=== PATIENT | male | born 1935 | race Caucasian/White ===

== ENCOUNTER 2016-08-20 17:35 | Observation (INO) ==
--- NOTE | 2016-08-20 19:48 | Emergency Department Note ---
Disposition Clinical Impression: Near syncope, Weakness of both lower limbs, Lightheadedness Disposition: Admitted As Inpatient Condition: Fair Forms: ED Satisfaction Letter Time of Disposition: 21:34 Dizziness HPI - General Chief Complaint: ED Dizziness Stated Complaint: Dizziness x5 days Time Seen by Provider: 08/20/16 18:38 Source: patient, family Limitations: no limitations Nursing Notes Reviewed: Yes Vital Signs Reviewed: Yes - History of Present Illness HPI Narrative: Patient is an 80-year-old male who presents to [facility] ED with a chief complaint of dizziness and feeling off balance. He states his symptoms have been ongoing for about the last 5 days. Patient states he felt this come on when he woke up on Wednesday morning. States he has had to use his cane to walk all week when he normally does not need it. states he has been very off balance though he has not fallen. States he normally does these exercises where he is laying on the floor and lifts 2 pound weights with his arms. States he suddenly became pale and felt like he was about to pass out while laying down. Denies any nausea, vomiting, fever or chills. states both him and her seemed to be coming down with a cold last week but then that has resolved. Patient has had a prior stroke in 2012 and was left with some memory problems and right eye peripheral vision blindness. Also has had a prior heart attack and stent placement back in 2007. Patient is on aspirin and Plavix. Pt Subjective Complaint: dizziness, lightheadedness, near syncope, difficulty walking, weakness Onset (ago): day(s) Timing: awoke with symptoms Description: lightheadedness, off-balance, difficulty walking, near-syncope History of similar episodes: No History of trauma: No Severity: moderate Improves with: nothing Worsens with: nothing Associated symptoms: Reports: weakness. Denies: chest pain, fever, chills, shortness of breath, vision changes, nausea, vomiting - Related Data Home Medications Medication Instructions Recorded Confirmed Aspirin 81 mg PO DAILY 10/21/15 04/17/16 Clopidogrel [Plavix] 75 mg PO DAILY 10/21/15 04/17/16 Nitroglycerin [Nitrostat] 0.4 mg SL PRN PRN 10/21/15 04/17/16 Simvastatin [Zocor] 40 mg PO HS 10/21/15 04/17/16 Isradipine 5 mg PO BID 08/20/16 08/20/16 Metoprolol XL (24 HR) Succ [Toprol 50 mg PO DAILY 08/20/16 08/20/16 XL] Previous Rx's Medication Instructions Recorded Lisinopril [Zestril] 10 mg PO BID #90 tablet 05/21/16 Allergies Allergy/AdvReac Type Severity Reaction Status Date / Time baclofen Allergy Rash Verified 08/20/16 18:04 metronidazole [From Flagyl] Allergy Rash Verified 08/20/16 18:04 All systems ED: reviewed and negative except as stated. Past Medical History - Past Medical History Attestation: Yes The following information was validated with the patient. Source: patient Medical history: Reports: cancer, CVA, myocardial infarction, other Surgical history: Reports: no surgical history Psychiatric history: Reports: no psych history - Social History Smoking Status: Never smoker Smokeless Tobacco Status: No Alcohol use: Reports: occasionally Drug use: Reports: none Physical Exam - General Limitations: no limitations General appearance: alert, in no apparent distress - Head Head exam: atraumatic, normocephalic, normal inspection - Eye Eye exam: Present: normal appearance, PERRL, EOMI - ENT ENT exam: normal exam, normal oropharynx, mucous membranes moist - Neck Neck exam: Present: normal inspection, full ROM, trachea midline - Chest Chest inspection: Present: normal inspection, symmetric chest wall rise - Respiratory Respiratory exam: Present: normal lung sounds bilaterally - Cardiovascular Cardiovascular exam: Present: regular rate, normal rhythm, normal heart sounds - Abdominal Exam Abdominal exam: Present: soft, Non-Tender. Absent: tenderness, distention, guarding, rebound, rigidity - Extremities Exam Extremities exam: Present: normal inspection, full ROM. Absent: tenderness, pedal edema - Back Exam Back exam: Present: normal inspection, full ROM. Absent: tenderness - Neurological Exam Neurological exam: Present: alert, oriented X3, CN II-XII intact. Absent: motor sensory deficit - Expanded Neurological Exam Speech: Present: fluid speech Cranial nerves: EOM function (II, III, IV, ): Normal, facial sensation (V): Normal, facial palsy (VII): Normal, spinal accessory function (XI): Normal, tongue deviation (XII): Normal Cerebellar function: finger to nose: Normal, heel to santoyo: Normal Motor strength - LUE: 5/5 Motor strength - RUE: 5/5 Motor strength - LLE: 5/5 Motor strength - RLE: 4/5 Sensory exam upper extremity: light touch: Normal Sensory exam lower extremity: light touch: Normal Coma Scale Eye Opening: Spontaneous Coma Scale Motor Response: Obeys Commands Coma Scale Verbal Response: Oriented Coma Scale Total: 15 - Psychiatric Psychiatric exam: Present: normal affect, normal mood - Skin Skin exam: Present: warm, dry, intact, normal color Course Course Narrative: Patient seen and examined. Dizziness and difficulty walking for the last 5 days. Concern for possible cerebellar stroke. Patient is out of the window for TPA. His NIH score is 0 at this time. We would like to get an MRI of the head. However, we were called by MRI stating due to patient's shrapnel in his pelvis, they will need to do a MRI over at the [facility] tomorrow during the day. We will do a CT scan of the head for now. Cardiopulmonary workup ordered. - Reevaluation(s) Reevaluation #1: Patient's lab work is unremarkable. CT head does not show any signs of an acute bleed. We will admit for CVA workup. Also workup for exertional syncope. I spoke with hospitalist Dr. Le who has accepted patient for admission. Time: 21:32 Vital Signs Temperature 98.1 F 08/20/16 18:00 Pulse Rate 70 08/20/16 18:00 Respiratory Rate 16 08/20/16 18:00 Blood Pressure 155/92 08/20/16 18:00 O2 Sat by Pulse Oximetry 93 L 08/20/16 18:00 Temperature 98.1 F 08/20/16 18:00 Pulse Rate 59 08/20/16 20:29 Respiratory Rate 16 08/20/16 18:00 Blood Pressure 152/98 08/20/16 20:29 O2 Sat by Pulse Oximetry 93 L 08/20/16 18:00 Oxygen Delivery Oxygen Delivery Room Air Dizziness - Medical Records Medical records reviewed: Yes I reviewed the patient's medical records. - Lab Data Lab results reviewed: Yes I reviewed the patient's lab results. Result diagrams: 08/20/16 20:07 08/20/16 20:07 Lab Results 08/20/16 08/20/16 08/20/16 Range/Units 20:07 20:07 20:07 WBC (4.3-11.1) K/mcL RBC (4.19-5.50) M/mcL Hgb (12.9-16.9) g/dL Hct (37.5-50.1) % MCV (83.0-100.0) fL MCH (28.0-33.3) pg MCHC (31.6-35.5) g/dL RDW (11.5-14.5) % Plt Count (140-400) K/mcL MPV (9.4-12.4) fL Immature Gran % (0-4) % Seg Neutrophils % % Lymphocytes % % Monocytes % % Eosinophils % % Basophils % % Neutrophils # (1.6-8.9) K/mcL Lymphocytes # (0.6-4.6) K/mcL Monocytes # (0.0-1.3) K/mcL Eosinophils # (0.0-0.6) K/mcL Basophils # (0.0-0.2) K/mcL Immature Plt Fraction (1.1-6.1) % PT 11.6 (9.4-12.1) Seconds INR 1.1 APTT 30.9 (26.0-36.0) Seconds Sodium 138 (136-145) mEq/L Potassium 4.2 (3.5-4.5) mEq/L Chloride 105 (98-109) mEq/L Carbon Dioxide 24 (19-29) mEq/L BUN 15 (8-26) mg/dL Creatinine 0.87 (0.72-1.25) mg/dL Est GFR ( Amer) > 60 (> 60) Est GFR (Non-Af Amer) > 60 (> 60) BUN/Creatinine Ratio 17 (6-26) Glucose 101 H (70-99) mg/dL Calculated Osmolality 287 (280-300) Calcium 8.9 (8.6-10.8) mg/dL Total Bilirubin 0.7 (0.2-1.2) mg/dL AST 86 H (5-34) Units/L ALT 170 H (0-55) Units/L Alkaline Phosphatase 111 (38-126) Units/L Troponin I 0.01 (0-0.03) ng/mL Serum Total Protein 7.1 (6.0-8.3) g/dL Albumin 3.8 (3.5-5.0) g/dL Globulin 3.3 (2.4-3.5) g/dL Albumin/Globulin Ratio 1.2 (1.1-2.2) 08/20/16 Range/Units 20:07 WBC 8.0 (4.3-11.1) K/mcL RBC 4.80 (4.19-5.50) M/mcL Hgb 14.7 (12.9-16.9) g/dL Hct 44.1 (37.5-50.1) % MCV 91.9 (83.0-100.0) fL MCH 30.6 (28.0-33.3) pg MCHC 33.3 (31.6-35.5) g/dL RDW 12.3 (11.5-14.5) % Plt Count 225 (140-400) K/mcL MPV 10.5 (9.4-12.4) fL Immature Gran % 0.5 (0-4) % Seg Neutrophils % 79.2 % Lymphocytes % 10.8 % Monocytes % 6.6 % Eosinophils % 2.6 % Basophils % 0.3 % Neutrophils # 6.3 (1.6-8.9) K/mcL Lymphocytes # 0.9 (0.6-4.6) K/mcL Monocytes # 0.5 (0.0-1.3) K/mcL Eosinophils # 0.2 (0.0-0.6) K/mcL Basophils # 0.0 (0.0-0.2) K/mcL Immature Plt Fraction 5.3 (1.1-6.1) % PT (9.4-12.1) Seconds INR APTT (26.0-36.0) Seconds Sodium (136-145) mEq/L Potassium (3.5-4.5) mEq/L Chloride (98-109) mEq/L Carbon Dioxide (19-29) mEq/L BUN (8-26) mg/dL Creatinine (0.72-1.25) mg/dL Est GFR ( Amer) (> 60) Est GFR (Non-Af Amer) (> 60) BUN/Creatinine Ratio (6-26) Glucose (70-99) mg/dL Calculated Osmolality (280-300) Calcium (8.6-10.8) mg/dL Total Bilirubin (0.2-1.2) mg/dL AST (5-34) Units/L ALT (0-55) Units/L Alkaline Phosphatase (38-126) Units/L Troponin I (0-0.03) ng/mL Serum Total Protein (6.0-8.3) g/dL Albumin (3.5-5.0) g/dL Globulin (2.4-3.5) g/dL Albumin/Globulin Ratio (1.1-2.2) - Radiology Data Radiology results reviewed: Yes I reviewed the patient's radiology results. Chest X-Ray 08/20/16 19:08 IMPRESSION: No acute cardiopulmonary disease. Stable, fibrotic interstitial opacities in the right base. D/ / Wisam Yu MD / Wisam Yu MD Interpreting Provider: Wisam Yu MD Head CT 08/20/16 19:55 IMPRESSION: No acute intracranial abnormality. Diffuse atrophic changes with findings suggesting chronic microvascular ischemia with an old left occipital lobe infarct D/ / Mahin Lee MD / Mahin Lee MD Interpreting Provider: Mahin Lee MD - EKG Data EKG attestation: Yes I reviewed and interpreted this EKG. EKG results narrative: EKG done at 1950 shows sinus bradycardia with a rate of 57 beats per minute. No acute ST elevation or depression. Normal axis. Rate is slower when compared to prior EKG done 06/30/2015.
[2016-08-20 20:16] LABS: Basophils % 0.3 %; Eosinophils # 0.2 K/mcL (0.0-0.6); Eosinophils % 2.6 %; Hematocrit 44.1 % (37.5-50.1); Hemoglobin 14.7 g/dL (12.9-16.9); Immature Granulocytes % 0.5 % (0-4); Immature Platelets 5.3 % (1.1-6.1); Lymphocytes # 0.9 K/mcL (0.6-4.6); Lymphocytes % 10.8 %; Mean Corpuscular HGB Conc 33.3 g/dL (31.6-35.5); Mean Corpuscular Hemoglobin 30.6 pg (28.0-33.3); Mean Corpuscular Volume 91.9 fL (83.0-100.0); Mean Platelet Volume 10.5 fL (9.4-12.4); Monocytes # 0.5 K/mcL (0.0-1.3); Monocytes % 6.6 %; Neutrophils # 6.3 K/mcL (1.6-8.9); Platelet Count 225 K/mcL (140-400); Red Cell Distribution Width 12.3 % (11.5-14.5); Segmented Neutrophils % 79.2 %
[2016-08-20 20:21] LABS: INR 1.1; Prothrombin Time 11.6 Seconds (9.4-12.1)
[2016-08-20 20:23] LABS: Activated Partial Thrombo Time 30.9 Seconds (26.0-36.0)
[2016-08-20 20:31] LABS: Alanine Aminotransferase 170 Units/L (0-55); Albumin 3.8 g/dL (3.5-5.0); Albumin/Globulin Ratio 1.2 (1.1-2.2); Alkaline Phosphatase 111 Units/L (38-126); Aspartate Amino Transferase 86 Units/L (5-34); BUN/Creatinine Ratio 17 (6-26); Bilirubin,Total 0.7 mg/dL (0.2-1.2); Blood Urea Nitrogen 15 mg/dL (8-26); Calcium 8.9 mg/dL (8.6-10.8); Carbon Dioxide 24 mEq/L (19-29); Chloride 105 mEq/L (98-109); Globulin 3.3 g/dL (2.4-3.5); Glucose 101 mg/dL (70-99); Osmolality,Calculated 287 (280-300); Potassium 4.2 mEq/L (3.5-4.5); Sodium 138 mEq/L (136-145); Total Protein 7.1 g/dL (6.0-8.3); eGFR For African Americans > 60 (> 60); eGFR For Non-African Americans > 60 (> 60)
--- NOTE | 2016-08-20 22:03 | Emergency Department Note ---
Disposition Clinical Impression: Near syncope, Weakness of both lower limbs, Lightheadedness Disposition: Admitted As Inpatient Condition: Fair General Adult HPI - General Chief complaint: ED Dizziness Stated complaint: Dizziness x5 days Time Seen by Provider: 08/20/16 18:38 Source: patient, family Limitations: no limitations - History of Present Illness Pain Scale: 0 - Related Data Home Medications Medication Instructions Recorded Confirmed Aspirin 81 mg PO DAILY 10/21/15 08/20/16 Clopidogrel [Plavix] 75 mg PO DAILY 10/21/15 08/20/16 Nitroglycerin [Nitrostat] 0.4 mg SL Q5M PRN 10/21/15 08/20/16 Simvastatin [Zocor] 40 mg PO HS 10/21/15 08/20/16 Isradipine 5 mg PO BID 08/20/16 08/20/16 Metoprolol XL (24 HR) Succ [Toprol 50 mg PO DAILY 08/20/16 08/20/16 XL] Previous Rx's Medication Instructions Recorded Lisinopril [Zestril] 10 mg PO BID #90 tablet 05/21/16 Allergies Allergy/AdvReac Type Severity Reaction Status Date / Time baclofen Allergy Rash Verified 08/20/16 18:04 metronidazole [From Flagyl] Allergy Rash Verified 08/20/16 18:04 Past Medical History - Past Medical History Medical history: Reports: cancer, CVA, myocardial infarction, other Surgical history: Reports: no surgical history Psychiatric history: Reports: no psych history - Social History Smoking Status: Never smoker Smokeless Tobacco Status: No Alcohol use: Reports: occasionally Drug use: Reports: none Physical Exam - General Limitations: no limitations General appearance: alert, in no apparent distress Course - Reevaluation(s) Reevaluation #1: I saw the patient with the resident, Dr. Baird. Patient presents with several days of dizziness. He also has general weakness. He is actually had to use a cane in order to ambulate when he has not had to do so in the past. Concern here is for possible stroke. Patient has a lot of risk factors for central causes of vertigo, now only stroke but he has a previous history of cancer. We tried to do an MRI but the patient has shrapnel in his hips and although he has got an MRI at this facility, it [facility] and we do not have access to the [facility] MRI at this time of night. Thus we went and did a CT of his head which showed no acute pathology. He is being admitted because of his symptoms and our concern for possible stroke and his inability to ambulate. They will do an MRI in the [facility] tomorrow to further evaluate this complaint. At this time the patient's vital signs are fine and he does not have a focal neurologic deficit. Time: 22:02 Vital Signs Temperature 98.1 F 08/20/16 18:00 Pulse Rate 70 08/20/16 18:00 Respiratory Rate 16 08/20/16 18:00 Blood Pressure 155/92 08/20/16 18:00 O2 Sat by Pulse Oximetry 93 L 08/20/16 18:00 Temperature 98.1 F 08/20/16 18:00 Pulse Rate 59 08/20/16 20:29 Respiratory Rate 16 08/20/16 18:00 Blood Pressure 152/98 08/20/16 20:29 O2 Sat by Pulse Oximetry 93 L 08/20/16 18:00 Oxygen Delivery Oxygen Delivery Room Air Medical Decision Making - Lab Data Result diagrams: 08/20/16 20:07 08/20/16 20:07 Lab Results 08/20/16 08/20/16 08/20/16 Range/Units 20:07 20:07 20:07 WBC (4.3-11.1) K/mcL RBC (4.19-5.50) M/mcL Hgb (12.9-16.9) g/dL Hct (37.5-50.1) % MCV (83.0-100.0) fL MCH (28.0-33.3) pg MCHC (31.6-35.5) g/dL RDW (11.5-14.5) % Plt Count (140-400) K/mcL MPV (9.4-12.4) fL Immature Gran % (0-4) % Seg Neutrophils % % Lymphocytes % % Monocytes % % Eosinophils % % Basophils % % Neutrophils # (1.6-8.9) K/mcL Lymphocytes # (0.6-4.6) K/mcL Monocytes # (0.0-1.3) K/mcL Eosinophils # (0.0-0.6) K/mcL Basophils # (0.0-0.2) K/mcL Immature Plt Fraction (1.1-6.1) % PT 11.6 (9.4-12.1) Seconds INR 1.1 APTT 30.9 (26.0-36.0) Seconds Sodium 138 (136-145) mEq/L Potassium 4.2 (3.5-4.5) mEq/L Chloride 105 (98-109) mEq/L Carbon Dioxide 24 (19-29) mEq/L BUN 15 (8-26) mg/dL Creatinine 0.87 (0.72-1.25) mg/dL Est GFR ( Amer) > 60 (> 60) Est GFR (Non-Af Amer) > 60 (> 60) BUN/Creatinine Ratio 17 (6-26) Glucose 101 H (70-99) mg/dL Calculated Osmolality 287 (280-300) Calcium 8.9 (8.6-10.8) mg/dL Total Bilirubin 0.7 (0.2-1.2) mg/dL AST 86 H (5-34) Units/L ALT 170 H (0-55) Units/L Alkaline Phosphatase 111 (38-126) Units/L Troponin I 0.01 (0-0.03) ng/mL Serum Total Protein 7.1 (6.0-8.3) g/dL Albumin 3.8 (3.5-5.0) g/dL Globulin 3.3 (2.4-3.5) g/dL Albumin/Globulin Ratio 1.2 (1.1-2.2) 08/20/16 Range/Units 20:07 WBC 8.0 (4.3-11.1) K/mcL RBC 4.80 (4.19-5.50) M/mcL Hgb 14.7 (12.9-16.9) g/dL Hct 44.1 (37.5-50.1) % MCV 91.9 (83.0-100.0) fL MCH 30.6 (28.0-33.3) pg MCHC 33.3 (31.6-35.5) g/dL RDW 12.3 (11.5-14.5) % Plt Count 225 (140-400) K/mcL MPV 10.5 (9.4-12.4) fL Immature Gran % 0.5 (0-4) % Seg Neutrophils % 79.2 % Lymphocytes % 10.8 % Monocytes % 6.6 % Eosinophils % 2.6 % Basophils % 0.3 % Neutrophils # 6.3 (1.6-8.9) K/mcL Lymphocytes # 0.9 (0.6-4.6) K/mcL Monocytes # 0.5 (0.0-1.3) K/mcL Eosinophils # 0.2 (0.0-0.6) K/mcL Basophils # 0.0 (0.0-0.2) K/mcL Immature Plt Fraction 5.3 (1.1-6.1) % PT (9.4-12.1) Seconds INR APTT (26.0-36.0) Seconds Sodium (136-145) mEq/L Potassium (3.5-4.5) mEq/L Chloride (98-109) mEq/L Carbon Dioxide (19-29) mEq/L BUN (8-26) mg/dL Creatinine (0.72-1.25) mg/dL Est GFR ( Amer) (> 60) Est GFR (Non-Af Amer) (> 60) BUN/Creatinine Ratio (6-26) Glucose (70-99) mg/dL Calculated Osmolality (280-300) Calcium (8.6-10.8) mg/dL Total Bilirubin (0.2-1.2) mg/dL AST (5-34) Units/L ALT (0-55) Units/L Alkaline Phosphatase (38-126) Units/L Troponin I (0-0.03) ng/mL Serum Total Protein (6.0-8.3) g/dL Albumin (3.5-5.0) g/dL Globulin (2.4-3.5) g/dL Albumin/Globulin Ratio (1.1-2.2) Attestation Statement - Attestation Attestation: I, Dr. Payne, examined this patient [id number] and my medical decision- making was reviewed with Dr. Baird, Resident Physician. I agree with the documented findings, disposition and treatment plan as described except to the extent set forth below. Please see my progress notes for details.
--- NOTE | 2016-08-21 00:50 | Internal Med History&Physical ---
<Laurence Walters Irais - Last Filed: 08/21/16 19:43> Date of Encounter: 08/20/16 Time of Encounter: 11:55 Assessment and Plan (1) Dizziness Status: Resolved unclear, possible etiology: TIA, CVA, cardiac, positional vertigo, metabolic cause EKG: bradicardic NSR orthostatics: 158/98 seated 160/[address]: chronic microvascular disease, no acute process CXR: R unchanged interstitial fibrosis no recent change in medication TSH vitD TSH consider meclizine prn consider MRI if asymmetrical symptoms develop (2) Lightheadedness Status: Resolved unclear, possible etiology: TIA, CVA, cardiac, positional vertigo, metabolic cause EKG: bradicardic NSR orthostatics: 158/98 seated 160/[address]: chronic microvascular disease, no acute process CXR: R unchanged interstitial fibrosis no recent change in medication TSH vitD TSH consider MRI if asymmetrical symptoms develop (3) Pulmonary fibrosis Status: Chronic likely secondary to chemotherapy in past vs 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 Irby is a 80 year old male with dizziness. PMHx OK, CVA, HTN, cancer. Pt states dizziness started for the first time last Wednesday. He states that starting wednesday afternoon he has started becoming dizzy and "feeling like the room is spinning around" and gets lightheaded him with standing. Pt states that this is especially noticeable when he gets up from bed in the morning, or if he gets up from seated too quickly. When this dizziness occurs he feels weak with standing and may stumble a little with his first few steps or have to sit back down. Pt states symptoms are made better with getting up slowly. Symptoms do not occur everyday, but seem to be specific with movement of position. Pt states BP has been well controlled at home, usually running 120s/ 80 and has not had any recent change in medication but did miss a dose this evening because he was in the ER at time medication was due. Admits to recent URI about 2 weeks ago. Pt denies headache, loss of vision, loss or change in hearing, recent falls, traumas, LOC, CP, SOB, numbness/tingling, N/V/D. Past Med Surg Social Fam HX - Past Medical History Medical history: cancer, CVA, hypertension, myocardial infarction, other ( osteopenia) Psychiatric history: no psych history - Past Surgical History Surgical History: angioplasty/stent, cancer surgery, cholecystectomy, colectomy , colostomy, herniorrhaphy - Social History Smoking Status: Former smoker Packs per day: <1ppd, quit 15years ago Smokeless Tobacco Status: No Alcohol use: occasionally Drug use: none Occupational status: retired Current living situation: Home Activity Level: Uses cane/walker Internal Medicine - H&P: Meds Aspirin 81 mg PO DAILY 10/21/15 [History] Clopidogrel [Plavix] 75 mg PO DAILY 10/21/15 [History] Nitroglycerin [Nitrostat] 0.4 mg SL Q5M PRN 10/21/15 [History] Simvastatin [Zocor] 40 mg PO HS 10/21/15 [History] Lisinopril [Zestril] 10 mg PO BID #90 tablet 05/21/16 [Rx] Isradipine 5 mg PO BID 08/20/16 [History] Metoprolol XL (24 HR) Succ [Toprol Xl] 50 mg PO DAILY 08/20/16 [History] Ciprofloxacin/Dex *EAR* Susp [Ciprodex *EAR* Susp] 4 drop BOTH EARS BID #1 bottle 08/21/16 [Rx] Meclizine [Antivert] 12.5 mg PO TID PRN #30 tablet 08/21/16 [Rx] Walker W Wheels [WHEELED WALKER] 1 each .ROUTE AD #1 each 08/21/16 [Rx] Allergies baclofen Allergy (Verified 08/20/16 18:04) Rash metronidazole [From Flagyl] Allergy (Verified 08/20/16 18:04) Rash All Systems PM: A 10-system review of systems was performed and is negative for pertinent findings except as documented above in the HPI. - Constitutional Constitutional: no anorexia, no chills, no fatigue, no falls, no night sweats - EENT Eyes: no blurry vision, no change in vision, no diplopia, no loss of vision - Cardiovascular Cardiovascular ROS IM: no chest pain, no diaphoresis, no dyspnea, no lightheadedness, no palpitations, no syncope - Respiratory Respiratory: no cough, no dyspnea, no wheezing, no excessive phlegm production - Gastrointestinal Gastrointestinal: no abdominal pain, no diarrhea, no hematemesis, no hematochezia, no melena, no nausea, no vomiting - Genitourinary Genitourinary ROS male: as per HPI - Musculoskeletal Musculoskeletal ROS IM: no muscle weakness, no numbness, no tingling - Integumentary Integumentary IM: no rash, no unusual bruising - Neurological Neurological ROS: abnormal gait, dizziness, no abnormal hearing, no abnormal speech, no confusion, no focal weakness, no frequent falls, no loss of vision, no memory loss, no numbness, no tingling, no weakness - Psychiatric Psychiatric: as per HPI - Constitutional Vitals: Temp Pulse Resp BP Pulse Ox 98.1 F 62 16 162/94 94 L 08/20/16 22:46 08/20/16 22:46 08/20/16 22:46 08/20/16 22:46 08/20/16 22:46 General appearance: Present: A&O X 3, pleasant, no acute distress, answers questions appropriately - Head Head exam: Present: atraumatic, normocephalic - Eye Eye exam: Present: EOMI, PERRL, conjuntiva pink, sclera anicteric Pupils: Present: PERRL - ENT ENT exam: Present: mucous membranes moist, normal external ear exam, normal oropharynx - Neck Neck exam general surgery: Present: thyromegaly, supple, trachea midline. Absent: lymphadenopathy - Respiratory Respiratory exam: Present: CTAB. Absent: accessory muscle use, chest wall tenderness, rales, respiratory distress, rhonchi, wheezes, tachypnea - Cardiovascular Cardiovascular exam: Present: RRR, +S1, +S2. Absent: diastolic murmur, gallop, rubs, systolic murmur - GI/Abdominal GI/Abdominal exam: Present: normal bowel sounds, soft, no peritoneal signs. Absent: distended, tenderness - Extremities Exam Extremities exam: Present: normal capillary refill, pedal edema (trace), warm, radial pulses palpable and symetrical. Absent: cyanotic - Back Exam Back exam: Present: normal inspection. Absent: CVA tenderness (L), CVA tenderness (R), paraspinal tenderness, vertebral tenderness - Neurological Exam Neurological exam: Present: CN II-XII intact, oriented X3, reflexes normal, no focal deficits, strengths equal and symetr throughout. Absent: motor sensory deficit, pronater drift, facial droop, speech deficit - Expanded Neurological Exam Neurological exam expanded: Absent: ataxia, expressive aphasia, inattentive, memory loss-recent event, memory loss-remote event, protecting the airway, receptive aphasia, total aphasia, tremor Patient oriented to: Present: person, place, time Speech: Present: fluid speech. Absent: stutter Cranial Nerves: EOM's intact PM: Normal, nystagmus PM: Normal, tongue deviation PM: Normal Cerebellar function: finger to nose: Normal, heel to santoyo: Normal Upper motor neuron: Brandon neglect: Normal, pronator drift: Normal, sensory extinction: Normal Sensory exam: lower extremity light touch: Normal, upper extremity light touch: Normal Neuro motor strength exam: LUE: 5, RUE: 5, LLE: 5, RLE: 5 DTR: patellar (L): 2+, patellar (R): 2+ Coma Scale Eye Opening: Spontaneous Coma Scale Motor Response: Obeys Commands Coma Scale Verbal Response: Oriented Coma Scale Total: 15 - Psychiatric Psychiatric exam: Present: normal affect, normal mood - Skin Skin exam: Present: dry, intact Internal Med - H&P Results - Labs CBC & Chem 7: 08/20/16 20:07 08/20/16 20:07 - Impressions Impressions Chest X-Ray 08/20/16 19:08 IMPRESSION: No acute cardiopulmonary disease. Stable, fibrotic interstitial opacities in the right base. D/ / Wsiam Yu MD / Wisam Yu MD Interpreting Provider: Wisam Yu MD Head CT 08/20/16 19:55 IMPRESSION: No acute intracranial abnormality. Diffuse atrophic changes with findings suggesting chronic microvascular ischemia with an old left occipital lobe infarct D/ / Mahin Lee MD / Mahin Lee MD Interpreting Provider: Mahin Lee MD <Coral Le R - Last Filed: 08/21/16 20:00> Internal Medicine - H&P: HPI History of present illness: Mr. Irby is a 80 year old male All Systems PM: A 10-system review of systems was performed and is negative for pertinent findings except as documented above in the HPI. - Constitutional Vitals: Temp Pulse Resp BP Pulse Ox 98.1 F 62 14 156/86 96 08/21/16 14:55 08/21/16 15:12 08/21/16 14:55 08/21/16 15:12 08/21/16 14:55 Internal Med - H&P Results - Labs CBC & Chem 7: 08/20/16 20:07 08/20/16 20:07 Labs: Urine 08/21/16 Range/Units 06:06 Urine Color Yellow (Yellow) Urine Clarity Clear (Clear) Urine pH 6.5 (5.0-8.0) pH Units Ur Specific [place] 1.014 (1.010-1.025) Urine Protein Negative (Neg-Trace) mg/dL Urine Glucose (UA) Normal (Normal) mg/dL - Impressions ITS Impressions Brain MRI 08/21/16 19:06 IMPRESSION: No evidence of acute intracranial abnormality. Minimal bilateral mastoiditis greater on the right. Moderate chronic microvascular disease within the periventricular white matter. Encephalomalacia within the left occipital lobe compatible with old infarct. Mild atrophy. D/ / 08/21/2016 10:35:32 Stas Mora MD / Oneida Unger Interpreting Provider: Stas Mora MD - Attending Attestation I performed history and physical examination of the patient and discussed his management with the Resident/Environmental Compliance Engineer. I reviewed the residents note and agree with the documented findings and plan of care, with additions as below. 80 Y/M with HTN, CAD, prior CVA presents with h/o dizziness on standing. He has unsteady gait. No falls / LOC reported. No weakness of the extremities reported. O/E: Not in acute distress. Cardiac: RRREKG personally reviewed by me shows Sinus bradycardia, with HR of 57. CT head showed no acute lesions. Orthostatic vitals: No drop in BP on standing, but heart rate is elevated. A/P: possible orthostatic hypotension. IV fluids. PT evaluation.
[2016-08-21] MEDS ORDERED: *HR* Promethazine 25 MG/ML VIAL IVP PRN (01:37)
[2016-08-21] MEDS ORDERED: Nitroglycerin 0.4 MG TAB.SUBL SL PRN (01:44)
[2016-08-21 02:59] LABS: Magnesium 1.8 mg/dL (1.6-2.6)
[2016-08-21 03:27] LABS: Thyroid Stimulating Hormone 3.819 mcIU/mL (0.350-4.840)
[2016-08-21] MEDS ORDERED: 0.9 % Sodium Chloride 500 ML IVC ONE (04:26)
[2016-08-21 06:15] LABS: Bilirubin,Urine Negative (Negative); Blood,Urine Negative (Negative); Clarity,Urine Clear (Clear); Color,Urine Yellow (Yellow); Glucose,Urine (UA) Normal (Normal); Ketones,Urine Negative (Negative); Leukocyte Esterase,Urine Negative (Negative); Nitrite,Urine Negative (Negative); PH,Urine 6.5 pH Units (5.0-8.0); Protein,Urine Negative (Neg-Trace); Specific Gravity,Urine 1.014 (1.010-1.025); Urobilinogen,Urine Normal (Normal)
[2016-08-21] MEDS ORDERED: Metoprolol XL (24 HR) Succ 50 MG TAB.ER.24H PO SCH (09:00)
[2016-08-21] MEDS ORDERED: Aspirin 81 MG TAB.CHEW PO SCH (09:00)
[2016-08-21] MEDS ORDERED: amLODIPine 5 MG TABLET PO SCH (13:15)
[2016-08-21 15:16] VITALS: BP 156/86
[2016-08-21] MEDS ORDERED: Ciprofloxacin/Dex *EAR* Susp 7.5 ML BOTTLE BOTH EARS SCH (16:08)
--- NOTE | 2016-08-21 16:10 | Discharge Summary ---
Date of Encounter: 08/21/16 Time of Encounter: 15:00 - Discharge Diagnosis (1) Dizziness Priority: Primary Status: Resolved Comments: Patient denied dizziness or lightheadedness on day of discharge. Likely due to bilateral mastoiditis and he was started on eardrops. Follow up outpatient. (2) Lightheadedness Priority: Primary Status: Resolved (3) Near syncope Priority: Primary Status: Acute Comments: Orthostatics repeated and unremarkable except for mild hypertension upon standing (4) Mastoiditis of both sides Priority: Primary Status: Acute Comments: Brain MRI negative for CVA however revealing mild mastoiditis bilaterally. Patient started on ciprofloxacin eardrops and will follow up outpatient. (5) Rectal cancer Priority: Secondary Status: Chronic Comments: Reportedly in remission 5 years. Follows with oncology, follow up outpatient (6) History of CVA (cerebrovascular accident) without residual deficits Priority: Secondary Status: Chronic (7) Pulmonary fibrosis Priority: Secondary Status: Chronic Comments: Imaging without acute processes - Discharge Medications Prescriptions: Ciprofloxacin/Dex *EAR* Susp [Ciprodex *EAR* Susp] 4 drop BOTH EARS BID #1 bottle Meclizine [Antivert] 12.5 mg PO TID PRN #30 tablet PRN Reason: Dizziness Walker W Wheels [WHEELED WALKER] 1 each .ROUTE AD #1 each Home Medications: Aspirin 81 mg PO DAILY 10/21/15 [History] Clopidogrel [Plavix] 75 mg PO DAILY 10/21/15 [History] Nitroglycerin [Nitrostat] 0.4 mg SL Q5M PRN 10/21/15 [History] Simvastatin [Zocor] 40 mg PO HS 10/21/15 [History] Lisinopril [Zestril] 10 mg PO BID #90 tablet 05/21/16 [Rx] Isradipine 5 mg PO BID 08/20/16 [History] Metoprolol XL (24 HR) Succ [Toprol Xl] 50 mg PO DAILY 08/20/16 [History] Ciprofloxacin/Dex *EAR* Susp [Ciprodex *EAR* Susp] 4 drop BOTH EARS BID #1 bottle 08/21/16 [Rx] Meclizine [Antivert] 12.5 mg PO TID PRN #30 tablet 08/21/16 [Rx] Walker W Wheels [WHEELED WALKER] 1 each .ROUTE AD #1 each 08/21/16 [Rx] Allergies/Adverse Reactions: Allergies baclofen Allergy (Verified 08/20/16 18:04) Rash metronidazole [From Flagyl] Allergy (Verified 08/20/16 18:04) Rash Date of admission: 08/20/16 21:48 Primary care physician: Jignesh Ledezma MD Consults: 08/21/16 09:25 PT [Consult to Physical Therapy] [CONS] Routine Comment: Evaluate, develop and implement POC Discharging clinician: Mandy Christiansen Anticipated date of discharge: 08/21/16 - Patient Status Disposition: Home, Self-Care Condition: Fair Functional capacity at discharge: uses cane/walker Overall status at discharge: patient is progressing back to baseline - Discharge Instructions Follow Up With: Jignesh Ledezma MD [Primary Care Provider] - Additional Instructions: Follow-up with primary care provider in one to 2 weeks - Diet and Activity Activity: ambulate only with your walker (until dizziness subsides), increase activity as tolerated Diet: low salt diet Hospital course: Mr. Irby is a 80 year old male with past medical history of prior CVA without residual deficits, hypertension, colon cancer in remission status post colectomy and colostomy., Former tobacco abuse quit 15 years ago. Patient presented to the emergency department chief complaint dizziness 5 days. Patient stating he became dizzy and felt as if the room was spinning around him associated with lightheadedness with standing. Patient stating his dizziness is worsened in the morning and when he gets up from a seated position too quickly. Patient stating when his dizziness occurs he has to sit back down and his symptoms are improved when he gets up slowly. Patient also noting he had a upper respiratory tract infection approximately 2 weeks prior to presentation. Patient denied headache, loss of vision, hearing changes or recent falls. Workup in the emergency department unremarkable. Chest x-ray negative for acute processes. Head CT negative for acute processes. Patient was admitted to the hospitalist service for further evaluation and management. Brain MRI ruled out an acute stroke however revealed mild bilateral mastoiditis which is likely that causative factor of his symptoms. He was started on Cipro eardrops. During this admission, he remained asymptomatic and did not have any lightheadedness or dizziness spells. He was evaluated by physical therapy recommended home health however the patient and his refused stating that he gets around just fine and does not need a walker or cane but the only issue with these intermittent bouts of dizziness. His orthostatic vital signs were initially abnormal and were repeated on day of discharge in his heart rate remained stable and mild hypertension noted however the patient had not received all of his home medications for his hypertension during this admission as we do not carry his Isradipine. Recommend slow position changes at home and follow-up closely outpatient. He was also given a prescription for a 4 wheeled walker and encouraged to use it until his dizziness has completely subsided. ITS Impressions Chest X-Ray 08/20/16 19:08 IMPRESSION: No acute cardiopulmonary disease. Stable, fibrotic interstitial opacities in the right base. D/ / Wisam Yu MD / Wisam Yu MD Interpreting Provider: Wisam Yu MD Head CT 08/20/16 19:55 IMPRESSION: No acute intracranial abnormality. Diffuse atrophic changes with findings suggesting chronic microvascular ischemia with an old left occipital lobe infarct D/ / Mahin Lee MD / Mahin Lee MD Interpreting Provider: Mahin Lee MD Brain MRI 08/21/16 19:06 IMPRESSION: No evidence of acute intracranial abnormality. Minimal bilateral mastoiditis greater on the right. Moderate chronic microvascular disease within the periventricular white matter. Encephalomalacia within the left occipital lobe compatible with old infarct. Mild atrophy. D/ / 08/21/2016 10:35:32 Stas Mora MD / Oneida Unger Interpreting Provider: Stas Mora MD - Time Spent with Patient Total time spent providing and/or coordinating discharge services: - Constitutional Vitals: Temp Pulse Resp BP Pulse Ox 98.1 F 62 14 156/86 96 08/21/16 14:55 08/21/16 15:12 08/21/16 14:55 08/21/16 15:12 08/21/16 14:55 General appearance: Present: A&O X 3, pleasant, no acute distress, answers questions appropriately - Head Head exam: Present: atraumatic, normocephalic - Eye Eye exam: Present: PERRL, conjuntiva pink, sclera anicteric Pupils: Present: PERRL - Neck Neck exam general surgery: Present: supple, trachea midline. Absent: lymphadenopathy - Respiratory Respiratory exam: Present: CTAB. Absent: accessory muscle use, rales, respiratory distress, rhonchi, wheezes - Cardiovascular Cardiovascular exam: Present: RRR, +S1, +S2. Absent: diastolic murmur, gallop, rubs, systolic murmur - GI/Abdominal GI/Abdominal exam: Present: normal bowel sounds, soft, no peritoneal signs. Absent: distended, tenderness - Extremities Exam Extremities exam: Present: warm, radial pulses palpable and symetrical. Absent : calf tenderness, cyanotic, pedal edema - Neurological Exam Neurological exam: Present: alert, CN II-XII intact, normal gait, oriented X3, no focal deficits, strengths equal and symetr throughout. Absent: pronater drift, facial droop, speech deficit - Skin Skin exam: Present: dry, intact, normal color, warm - VTE Reasons for not Prescribing Prophylaxis: Treatment not Indicated - Low risk for VTE
--- NOTE | 2016-08-23 07:32 | Electrocardiograph Report ---
[address] [address] Test Date: 2016-08-20 Pat Name: Jamar Irby Department: 103 Room: 3B11 Gender: M Sales And Service Consultant: RANDY : 1935 Requested By: Kathia Baird Order Number: [id number] Reading MD: Des Baez MD Measurements Intervals [place] Rate: 57 P: 45 ND: 196 QRS: 19 QRSD: 102 T: 71 QT: 397 QTc: 392 Interpretive Statements SINUS BRADYCARDIA Electronically Signed On 08-23-2016 7:31:16 EDT by Des Baez MD
== END 2016-08-21 17:05 | disposition home or self-care (01) ==
LOC: EMEROO 17:35 → 3BNU 17:35
PROVIDERS: ADMIT Internal Medicine; ATTEND Nurse Practitioner Family